=== PATIENT | female | born 1955 | race Caucasian/White ===

== ENCOUNTER 2018-11-06 20:14 | Inpatient (IN) | payer MEDICAID, OTHER ==
[~2018-11-06] VITALS: Ht 157.5 cm; Wt 72.6 kg
[2018-11-06 20:36] VITALS: BP 126/67
--- NOTE | 2018-11-06 20:36 | NUR ---
TO BED # 04 AMBULATORY, REPORT GIVEN TO APARNA CASILLAS.
--- NOTE | 2018-11-06 20:45 | NUR ---
63 YO FEMALES TO ER DUE TO ABNORMAL LABS. PER GRAND SON, HGB LOW. PT STATES SHE FEELS SOB WITH ACTIVITY. PT AAOX4 FOLLOWING COMMANDS. S1 S2, +2 BLE EDEMA NOTED. LUNGS CLEAR EVEN, RR 25-30. ABD SOFT NON DISTENDED. SKIN WARM DRY INTACT. PT DENIES CP/SOB. NO DIZZINESS NOTED. EVAN LOCKED IN LOWEST POSITION. WILL UPDATE ER MD WILL CONTINUE TO OBSERVE.
--- NOTE | 2018-11-06 21:06 | NUR ---
MED HX: ANEMIA, SWELLING OF ANKLES RX: NAPROXEN FOR PAIN
--- NOTE | 2018-11-06 21:24 | NUR ---
X-Ray at bedside.
[2018-11-06 21:52] LABS: BASOPHILS # (AUTO) 0.1 K/uL (0.00-0.22); BASOPHILS % (AUTO) 2.8 % (0.0-2.0); EOSINOPHILS # (AUTO) 0.8 K/uL (0-0.4); EOSINOPHILS % (AUTO) 19.6 % (0.0-4.0); LYMPHOCYTES # (AUTO) 1.8 K/uL (2.5-16.5); LYMPHOCYTES % (AUTO) 40.6 % (20.5-51.1); MEAN CORPUSCULAR HEMOGLOBIN 16 pg (27-31); MEAN CORPUSCULAR HGB CONC 27 g/dL (33-37); MONOCYTES # (AUTO) 0.4 K/uL (0.8-1.0); MONOCYTES % (AUTO) 8.2 % (1.7-9.3); NEUTROPHILS # (AUTO) 1.2 K/uL (1.8-7.7); NEUTROPHILS % (AUTO) 28.8 % (42.2-75.2); PLATELET COUNT (AUTO) 312 K/uL (140-450); RED BLOOD CELL COUNT(AUTO) 3.35 MIL/uL (4.20-5.40); RED CELL DISTRIBUTION WIDTH 22.8 % (11.6-13.7); WHITE BLOOD COUNT (AUTO) 4.3 K/uL (4.8-10.8)
[2018-11-06 22:00] LABS: HEMOGLOBIN 5.3 g/dL (12.0-16.0)
[2018-11-06 22:01] LABS: HEMATOCRIT 19.8 % (36-48)
[2018-11-06 22:05] LABS: CARBON DIOXIDE 29.7 mmol/L (21-32); CREATININE 0.6 mg/dL (0.6-1.3); POTASSIUM 3.7 mmol/L (3.5-5.1)
[2018-11-06 22:11] LABS: ALBUMIN 3.6 g/dL (3.4-5.0); TOTAL BILIRUBIN 0.4 mg/dL (0.0-1.0)
[2018-11-06 22:19] LABS: PROTHROMBIN TIME 9.8 secs (10.8-13.4)
[2018-11-06 22:36] LABS: CREATINE KINASE MB 0.4 ng/mL (0-3.6)
[2018-11-06] MEDS ORDERED: ACETAMINOPHEN 325 MG TAB PO PRN (23:05)
[2018-11-06] MEDS ORDERED: MORPHINE SULFATE 2 MG/ML SYR IVP PRN (23:05)
[2018-11-06] MEDS ORDERED: HYDROcodone/APAP 7.5/325 MG 1 TAB PO PRN (23:05)
[2018-11-06] MEDS ORDERED: DOCUSATE SODIUM 100 MG GELCAP PO PRN (23:05)
[2018-11-06] MEDS ORDERED: ONDANSETRON 4 MG/2 ML VIAL IM/IVP PRN (23:05)
--- NOTE | 2018-11-06 23:15 | NUR ---
Patient will be admitted to care of DR. MAGDALENO. Admited to MST. Will go to [id number]. Belongings list completed. Report to ROBERTO CARLOS. ENDORSED TO FLOOR NURSE THAT LABS DRAWN. NO TRANSFUSION GIVEN, AWAITING PRBC TO BE READY, NEED MORE URINE FOR UDS/CULTURE WELL.
--- NOTE | 2018-11-06 23:40 | NUR ---
Admitted from ED, with chief complaint of ABNORMAL LABS, 63 y/o ,Female, Awake, Alert and Oriented, Cooperative, Slovak-speaking only. Pt was assisted to the bathroom by HAND TIRE TRIMMER. Will collect urine sample for test. Pt appears to be limping and needs standby assist. Pt and Son made aware. Dr Shaver came and did rectal examination to do hemo occult test and he said it's negative. Pt's information given by son. Pt oriented to call light, bed, phone,television, bathroom, smoking policy, visiting hours, procedures, ID bracelet on. Belongings list checked. Asked son to take home pt's belongings. Pt just wants her cellphone with her. MRSA swab collected. Safety reinforced.
[2018-11-06 23:45] VITALS: BP 115/61
[2018-11-07 00:11] LABS: MAGNESIUM 2.2 mg/dL (1.8-2.4); THYROID STIMULATING HORMONE 2.43 uIU/mL (0.34-3.74)
--- NOTE | 2018-11-07 00:20 | NUR ---
Pt went to Radiology for CT of the Head via wheelchair.
[2018-11-07] MEDS: NACL 0.9% 1,000 ML IV SCH ×2 (00:28→23:37)
[2018-11-07 01:10] LABS: APPEARANCE,URINE CLEAR (CLEAR); BILIRUBIN,URINE NEGATIVE (NEGATIVE); BLOOD, URINE NEGATIVE (NEGATIVE); COLOR,URINE YELLOW (YELLOW); LEUKOCYTE ESTERASE ,URINE TRACE (NEGATIVE); NITRITE, URINE NEGATIVE (NEGATIVE); UGLUCOSE NEGATIVE (NEGATIVE)
--- NOTE | 2018-11-07 01:14 | NUR ---
SPOKE TO DR CORTES AND INFORMED HIM ABOUT PT'S VTE SCORE OF 7. TOLD HIM HE ORDERED SEQUENTIAL BUT HE ASKED IF PT IS ON ANY BLOOD THINNER, TOLD HIM, NO. HE SAID "I'LL ORDER HEPARIN SUBQ."
[2018-11-07 02:18] LABS: RBC,URINE 0-5 /HPF (0-5); WBC,URINE 0-5 /HPF (0-5)
[2018-11-07 02:35] LABS: BARBITURATE, URINE NEG. ng/ml (NEG <=200); BENZODIAZEPINE, URINE NEG. ng/mL (NEG <=200); CANNABINOID, URINE NEG. ng/mL (NEG <=50); COCAINE, URINE NEG. ng/mL (NEG <=300); OPIATE, URINE NEG. ng/mL (NEG <=2000); PHENCYCLIDINE SCREEN,URINE NEG. ng/mL (NEG <=25)
--- NOTE | 2018-11-07 03:00 | NUR ---
VITAL SIGNS CHECKED. FIRST UNIT OF PRBC GIVEN ORDERED. WILL MONITOR PT FOR 15MINS. PT DENIES ANY DISCOMFORT.
[2018-11-07 04:00] VITALS: BP 94/42
--- NOTE | 2018-11-07 06:00 | NUR ---
FIRST UNIT OF PRBC FINISHED. VITAL SIGNS CHECKED. PT DENIES ANY ADVERSE REACTION. WILL GIVE 2ND UNIT. PT DENIES ANY NEEDS. CALL LIGHT W/IN REACH.
--- NOTE | 2018-11-07 06:50 | NUR ---
VITAL SIGNS WNL. SECOND UNIT OF PRBC STARTED. WILL MONITOR PT FOR 15MINS.
--- NOTE | 2018-11-07 07:00 | NUR ---
SEQUENTIAL COMPRESSION DEVICE APPLIED FOR VTE PROPHYLAXIS ORDERED. EXPLAINED TO PATIENT BY VINNY ALONSO. PT VERBALIZED UNDERSTANDING.
--- NOTE | 2018-11-07 07:05 | NUR ---
VITAL SIGNS WNL. PT DENIES ANY ADVERSE REACTIONS. WILL CONTINUE TO MONITOR. CALL LIGHT W/IN REACH.
--- NOTE | 2018-11-07 07:09 | NUR ---
WILL ENDORSE CARE TO DAYSHIFT NURSE.
--- NOTE | 2018-11-07 07:10 | NUR ---
RECEIVED REPORT FROM RAD TECHNOLOGIST NURSE AT BEDSIDE FOR CONTINUITY OF CARE. PATIENT AOX4, MONEGASQUE SPEAKING, AMBULATES WITH ASSIST. DX OF ABNORMAL LABS, CURRENTLY GETTING 2ND UNIT OF BLOOD THROUGH IV TO LEFT HAND. IV SITE INTACT, ASYMPTOMATIC AND PATENT. PATIENT DENIES PAIN AT THE MOMENT. VITAL SIGNS WNL. RESPIRATIONS EVEN AND UNLABORED ON 2L O2 VIA NC. PATIENT HAS SCDS. VERBALIZED PLAN OF CARE, PATIENT VERBALIZED UNDERSTANDING. SAFETY PRECAUTIONS IN PLACE, BED ON LOWEST SETTING WITH BRAKES ON, CALL LIGHT WITHIN REACH, WILL CONTINUE TO MONITOR PATIENT.
[2018-11-07 07:55] VITALS: BP 110/54
--- NOTE | 2018-11-07 08:15 | NUR ---
PATIENT HAS BEEN SCREENED AND CATEGORIZED MODERATE NUTRITION RISK. PATIENT WILL BE SEEN WITHIN 3-5 DAYS OF ADMISSION. 11/09/18WU [address]ERGM[address]
--- NOTE | 2018-11-07 10:30 | NUR ---
2ND UNIT OF BLOOD FINISHED. PATIENT DENIES ANY ADVERSE REACTIONS. PT C/O OF HEADACHE, 12/03, OFFERED NORCO, PT REFUSED, OFFERED TYLENOL, PATIENT REFUSED. WILL CONTINUE TO MONITOR PATIENT.
--- NOTE | 2018-11-07 10:55 | NUR ---
THIRD UNIT OF BLOOD STARTED. VS WNL. PATIENT DENIES ANY ADVERSE REACTIONS. SAFETY PRECAUTIONS IN PLACE, CALL LIGHT WITHIN REACH, WILL CONTINUE TO MONITOR PATIENT.
[2018-11-07 12:00] VITALS: BP 110/45
--- NOTE | 2018-11-07 13:15 | NUR ---
PATIENT'S FAMILY AT BEDSIDE. INFORMED PATIENT'S SON, YAEL, OF PLAN OF CARE, HE VERBALIZED UNDERSTANDING. PATIENT STILL RECEIVED BLOOD. SAFETY PRECAUTIONS IN PLACE, CALL LIGHT WITHIN REACH, WILL CONTINUE TO MONITOR PATIENT.
[2018-11-07] MEDS ORDERED: SODIUM FERRIC GLUCONATE 125 MG in NACL 0.9% 100 ML IV SCH (14:00)
--- NOTE | 2018-11-07 14:05 | NUR ---
PT C/O PAIN 410 ON BACK. OFFERED NORCO. PATIENT REFUSED. OFFERED TYLENOL, PATIENT AGREED. MEDICATION GIVEN. PATIENT TOLERATED IT WELL. SAFETY PRECAUTIONS IN PLACE, CALL LIGHT WITHIN REACH, WILL CONTINUE TO MONITOR PATIENT.
--- NOTE | 2018-11-07 14:47 | NUR ---
PHYSICAL THERAPISTS WITH PATIENT. WILL WAIT FOR THEIR RECOMMENDATION.
--- NOTE | 2018-11-07 14:55 | NUR ---
ORDERED IVPB GIVEN. PATIENT TOLERATING IT WELL. PATIENT NOW LAYING IN BED, DENIES PAIN, AFTER AMBULATING TO BATHROOM WITH STANDBY ASSIST. SAFETY PRECAUTIONS IN PLACE, CALL LIGHT WITHIN REACH, WILL CONTINUE TO MONITOR PATIENT.
--- NOTE | 2018-11-07 15:20 | NUR ---
PATIENT RESTING IN BED, DENIES PAIN, RESPIRATIONS EVEN AND UNLABORED ON O2 2L VIA NC. SAFETY PRECAUTIONS IN PLACE, CALL LIGHT WITHIN REACH, WILL CONTINUE TO MONITOR PATIENT.
[2018-11-07 16:00] VITALS: BP 114/44
[2018-11-07 16:26] LABS: BASOPHILS # (AUTO) 0.1 K/uL (0.00-0.22); BASOPHILS % (AUTO) 2.8 % (0.0-2.0); EOSINOPHILS # (AUTO) 0.7 K/uL (0-0.4); HEMATOCRIT 28.7 % (36-48); HEMOGLOBIN 8.6 g/dL (12.0-16.0); LYMPHOCYTES # (AUTO) 1.6 K/uL (2.5-16.5); MEAN CORPUSCULAR HEMOGLOBIN 20 pg (27-31); MEAN CORPUSCULAR HGB CONC 30 g/dL (33-37); MEAN CORPUSCULAR VOLUME 67.7 fL (80-94); MONOCYTES # (AUTO) 0.4 K/uL (0.8-1.0); MONOCYTES % (AUTO) 9.2 % (1.7-9.3); NEUTROPHILS # (AUTO) 1.3 K/uL (1.8-7.7); PLATELET COUNT (AUTO) 254 K/uL (140-450); RED BLOOD CELL COUNT(AUTO) 4.24 MIL/uL (4.20-5.40); RED CELL DISTRIBUTION WIDTH 29.3 % (11.6-13.7); WHITE BLOOD COUNT (AUTO) 4.2 K/uL (4.8-10.8)
--- NOTE | 2018-11-07 17:15 | NUR ---
ORDERED MEDICATION GIVEN. PATIENT TOLERATING IT WELL. PATIENT NOW LAYING IN BED, DENIES PAIN, AFTER AMBULATING TO BATHROOM WITH STANDBY ASSIST. SAFETY PRECAUTIONS IN PLACE, CALL LIGHT WITHIN REACH, WILL CONTINUE TO MONITOR PATIENT.
[2018-11-07] MEDS: FERROUS GLUCONATE 324 MG TAB PO SCH (17:16)
--- NOTE | 2018-11-07 19:10 | NUR ---
RECEIVED REPORT FROM DAY SHIFT RN KERA FOR CONTINUITY OF CARE. PT IS A/OX4, ON ROOM AIR SATURATING AT 95%, PORTUGUESE SPEAKING. PT ABLE TO MAKE NEEDS KNOWN, AND ABLE TO FOLLOW COMMANDS. PT AMBULATES WITH ASSISTANCE. PT SKIN IS INTACT. PT HAS A 20G IV TO RIGHT FOREARM, ASYMPTOMATIC AND INTACT. VITAL SIGNS WITHIN NORMAL LIMITS. PT STABLE, DENIES PAIN, NO SIGNS OF DISTRESS NOTED AT THIS TIME. PT POSITIONED FOR COMFORT. BED IN LOWEST POSITION, BED ALARM ON. WILL CONTINUE TO MONITOR.
[2018-11-07 20:00] VITALS: BP 109/53
--- NOTE | 2018-11-07 21:40 | NUR ---
PT RESTING IN BED NOW. PT STATES SHE DOES NOT NEED ANYTHING AT THE MOMENT. NO SIGNS OF DISTRESS NOTED AT THIS TIME. PT POSITIONED FOR COMFORT. BED IN LOWEST POSITION, BED ALARM ON. WILL CONTINUE TO MONITOR.
[2018-11-08] VITALS: BP 118/48
--- NOTE | 2018-11-08 | NUR ---
VITAL SIGNS WITHIN NORMAL LIMITS. PT STABLE, DENIES PAIN, NO SIGNS OF DISTRESS NOTED AT THIS TIME. PT POSITIONED FOR COMFORT. BED IN LOWEST POSITION, BED ALARM ON. WILL CONTINUE TO MONITOR.
--- NOTE | 2018-11-08 02:25 | NUR ---
ASSISTED PT TO RESTROOM AND BACK TO BED. NO SIGNS OF DISTRESS NOTED AT THIS TIME. PT POSITIONED FOR COMFORT. BED IN LOWEST POSITION, BED ALARM ON. WILL CONTINUE TO MONITOR.
[2018-11-08 04:00] VITALS: BP 103/49
--- NOTE | 2018-11-08 04:00 | NUR ---
ENDORSED PT TO DAY SHIFT RN JACOB AT PT BEDSIDE FOR CONTINUITY OF CARE. PT IN STABLE CONDITION.
--- NOTE | 2018-11-08 04:40 | NUR ---
PT STABLE, NO SIGNS OF DISTRESS NOTED. REPOSITIONED. BED LOW, CALL LIGHT WITHIN REACH. WILL CONTINUE TO MONITOR.
--- NOTE | 2018-11-08 07:26 | NUR ---
ENDORSED PT TO DAY SHIFT RN JACOB AT PT BEDSIDE FOR CONTINUITY OF CARE. PT IN STABLE CONDITION.
[2018-11-08 08:00] VITALS: BP 116/61
[2018-11-08] MEDS: FERROUS GLUCONATE 324 MG TAB PO SCH (08:31)
[2018-11-08] MEDS ORDERED: INFLUENZA VIRUS VACCINE QUAD 0.5 ML SYR IMVAC PRN (09:00)
[2018-11-08] MEDS ORDERED: PNEUMOCOCCAL VACCINE 23 MCG/0.5 ML VIAL IMVAC SCH (09:00)
[2018-11-08 09:38] LABS: MAGNESIUM 2.2 mg/dL (1.8-2.4); PHOSPHORUS 2.3 mg/dL (2.5-4.9)
[2018-11-08 09:40] LABS: ANION GAP 11.6 (8-16); CARBON DIOXIDE 28.7 mmol/L (21-32); CREATININE 0.6 mg/dL (0.6-1.3); POTASSIUM 3.3 mmol/L (3.5-5.1)
[2018-11-08 09:54] LABS: BASOPHILS # (AUTO) 0.1 K/uL (0.00-0.22); BASOPHILS % (AUTO) 2.2 % (0.0-2.0); EOSINOPHILS # (AUTO) 0.6 K/uL (0-0.4); EOSINOPHILS % (AUTO) 16.5 % (0.0-4.0); HEMATOCRIT 31.8 % (36-48); HEMOGLOBIN 9.3 g/dL (12.0-16.0); LYMPHOCYTES % (AUTO) 26.6 % (20.5-51.1); MEAN CORPUSCULAR HEMOGLOBIN 20 pg (27-31); MEAN CORPUSCULAR HGB CONC 29 g/dL (33-37); MEAN CORPUSCULAR VOLUME 68.1 fL (80-94); MONOCYTES # (AUTO) 0.3 K/uL (0.8-1.0); NEUTROPHILS # (AUTO) 1.7 K/uL (1.8-7.7); NEUTROPHILS % (AUTO) 47.7 % (42.2-75.2); PLATELET COUNT (AUTO) 267 K/uL (140-450); RED BLOOD CELL COUNT(AUTO) 4.66 MIL/uL (4.20-5.40); RED CELL DISTRIBUTION WIDTH 29.6 % (11.6-13.7); WHITE BLOOD COUNT (AUTO) 3.6 K/uL (4.8-10.8)
--- NOTE | 2018-11-08 10:55 | NUR ---
SPOKE WITH PT VIA TELEPHONE PUBLIC HEALTH INFORMATICIAN #[id number], PT STATES ANSHUWILL HELPED WITH BACK PAIN, PT REQUESTS PRESCRIPTION FOR PAIN, PT STATES SHE TAKES IBUPROFEN AT HOME BUT NOT EFFECTIVE, WILL NOTIFY MD, PT'S SON WILL COME CRYSTAL SYRUP MAKER PT FOR DISCHARGE, PT STATES IT IS OK FOR SON TO TRANSLATE DURING DISCHARGE INSTRUCTION.
[2018-11-08 12:00] VITALS: BP 108/59
[2018-11-08] MEDS ORDERED: FERR324T11 PO (12:15)
[2018-11-08] MEDS ORDERED: IBUP-2213 PO (12:15)
[2018-11-08] MEDS ORDERED: ASCO500T45 PO (12:15)
[2018-11-08] MEDS ORDERED: DOCU-299 PO (12:15)
[2018-11-08] MEDS ORDERED: POTASSIUM CHLORIDE 10 MEQ TABER PO SCH (12:32)
[2018-11-08] MEDS ORDERED: SODIUM PHOS / POTASSIUM PHOS 1 PKT PDR PO SCH (12:33)
--- NOTE | 2018-11-08 13:15 | NUR ---
VACCINE FLU AND PNA GIVEN PER PT REQUEST, PT ANGELA K KINGSLEY AND K PHODinh WELL.
[2018-11-08] MEDS ORDERED: [UNRECOGNIZED DRUG - CODE] PO (13:23)
--- NOTE | 2018-11-08 13:40 | NUR ---
DISCHARGE INSTRUCTION AND RX INFO GIVEN AND EXPLAINED TO PT AND PT'S SON. THEY EXPRESSED FULL UNDERSTANDING. IV DC'D, CATH TIP INTACT, BLEEDING CONTROLLED, PT ANGELA WELL. PT UP OUT OF BED WITHOUT PROBLEM, WALKS WITH SLOW STEADY GAIT, DC HOME NOW WITH SON.
[2018-11-09 17:43] LABS: FOLIC ACID 10.9 ng/mL (>3.0)
== END 2018-11-08 14:35 | disposition home or self-care (01) | DRG 663 ==
LOC: MED 20:14 → MTU 23:02
PROVIDERS: ADMIT General Practice; ATTEND General Practice
PROC: 30233N1 Transfusion of Nonautologous Red Blood Cells into Peripheral Vein, Percutaneous Approach (ICD-10-PCS; 2018-11-06)
PROC: 3E02340 Introduction of Influenza Vaccine into Muscle, Percutaneous Approach (ICD-10-PCS; principal; 2018-11-08)
PROC: 3E0234Z Introduction of Serum, Toxoid and Vaccine into Muscle, Percutaneous Approach (ICD-10-PCS; 2018-11-08)
DX: D50.9 Iron deficiency anemia, unspecified (principal); I50.42 Chronic combined systolic (congestive) and diastolic (congestive) heart failure; E83.39 Other disorders of phosphorus metabolism; R04.0 Epistaxis; M19.90 Unspecified osteoarthritis, unspecified site; R26.81 Unsteadiness on feet; Z87.891 Personal history of nicotine dependence; E87.6 Hypokalemia; G31.9 Degenerative disease of nervous system, unspecified; I51.7 Cardiomegaly; Z23 Encounter for immunization
CPT/HCPCS: 36415; 70450; 71045; 80048; 80053; 80305; 81001; 82150; 82550; 82553; 82607; 82746; 83036; 83540; 83690; 83735; 83880; 84100; 84443; 84484; 85025; 85045; 85610; 85730; 86886; 86900; 86901; 86920; 87081; 90732; 93005; 93970; 97116; 99285; J2916; J7030; P9016; Q0092

== ENCOUNTER 2020-01-29 19:12 | Emergency (ER) | payer MEDICAID ==
[~2020-01-29] VITALS: Ht 147.3 cm; Wt 75.3 kg
[~2020-01-29 19:12] MED LIST: ASCO500T45 PO; DOCU-299 PO; FERR324T11 PO; [UNRECOGNIZED DRUG - CODE] PO
[2020-01-29 19:22] VITALS: BP 136/77
[2020-01-29 20:30] VITALS: BP 136/77
== END 2020-01-29 20:30 | disposition home or self-care (01) ==
LOC: MED 19:12
DX: F41.9 Anxiety disorder, unspecified (principal); Z79.899 Other long term (current) drug therapy
CPT/HCPCS: 99281; 99283

== ENCOUNTER 2021-09-23 17:16 | Inpatient (IN) | payer MEDICAID, SELFPAY ==
[~2021-09-23] VITALS: Ht 144.8 cm; Wt 70.8 kg
[~2021-09-23 17:16] MED LIST changes: -ASCO500T45 PO; +ASCO500T95 PO; +CEPH250C16 PO
[2021-09-23 17:24] VITALS: BP 114/74
--- NOTE | 2021-09-23 18:14 | NUR ---
PT AMBULATED TO BED 11.
--- NOTE | 2021-09-23 18:35 | NUR ---
Blood work, Influenza/Abbi swabs collected, handed to Jennifer, CPT at ER bedside
[2021-09-23] MEDS ORDERED: FUROSEMIDE 40 MG/4 ML VIAL IVP ONE (18:55)
--- NOTE | 2021-09-23 19:02 | NUR ---
65/F C/O SOB. STATES SHE WAS REFERRED BY HER PCP DUE TO LOW OXYGEN LEVELS, STATES THESE SYMPTOMS HAVE BEEN PRESENT AND WORSENING THE PAST 4-5 MONTHS. DENIES CP, FEVERS. MEDHX: ANEMIA ALLERGIES: NKA
[2021-09-23] MEDS ORDERED: [UNRECOGNIZED DRUG - CODE] PO (19:07)
[2021-09-23 19:16] LABS: BASOPHILS # (AUTO) 0.1 K/uL (0.00-0.22); BASOPHILS % (AUTO) 0.9 % (0.0-2.0); EOSINOPHILS # (AUTO) 0.2 K/uL (0-0.4); EOSINOPHILS % (AUTO) 2.4 % (0.0-4.0); HEMATOCRIT 36.8 % (36-48); HEMOGLOBIN 11.8 g/dL (12.0-16.0); LYMPHOCYTES # (AUTO) 1.3 K/uL (2.5-16.5); LYMPHOCYTES % (AUTO) 17.8 % (20.5-51.1); MEAN CORPUSCULAR HEMOGLOBIN 29 pg (27-31); MEAN CORPUSCULAR HGB CONC 32 g/dL (33-37); MEAN CORPUSCULAR VOLUME 88.8 fL (80-94); MONOCYTES # (AUTO) 0.5 K/uL (0.8-1.0); MONOCYTES % (AUTO) 7.2 % (1.7-9.3); NEUTROPHILS # (AUTO) 5.3 K/uL (1.8-7.7); NEUTROPHILS % (AUTO) 71.7 % (42.2-75.2); PLATELET COUNT (AUTO) 297 K/uL (140-450); RED BLOOD CELL COUNT(AUTO) 4.14 MIL/uL (4.20-5.40); RED CELL DISTRIBUTION WIDTH 16.9 % (11.6-13.7); WHITE BLOOD COUNT (AUTO) 7.3 K/uL (4.8-10.8)
--- NOTE | 2021-09-23 19:36 | NUR ---
Pt report given to CLAIR Beltran RN. Transfer of care at this time.
[2021-09-23 19:57] LABS: ALBUMIN 3.1 g/dL (3.4-5.0); ANION GAP 9.7 (8-16); CARBON DIOXIDE 30.5 mmol/L (21-32); CREATININE 0.4 mg/dL (0.6-1.3); POTASSIUM 4.2 mmol/L (3.5-5.1); TOTAL BILIRUBIN 0.2 mg/dL (0.0-1.0)
[2021-09-24] MEDS ORDERED: ACETAMINOPHEN 325 MG TAB ONE (04:04)
[2021-09-24] MEDS ORDERED: ACETAMINOPHEN 325 MG TAB PO PRN ×2 (04:05→12:05)
--- NOTE | 2021-09-24 05:30 | NUR ---
PATIENT OBSERVED SLEEPING COMFORTABLY IN BED. BREATHING VIA NC AT 2 L/MIN O2 SAT 94% WITH NO SIGNS OF ACUTE DISTRESS. ALL SAFETY MEASURES IN PLACE, WILL CONTINUE TO CLOSELY MONITOR AND FOLLOW POC.
--- NOTE | 2021-09-24 07:19 | NUR ---
PATIENT HAS BEEN SCREENED AND CATEGORIZED MODERATE NUTRITION RISK. PATIENT WILL BE SEEN WITHIN 3-5 DAYS OF ADMISSION. 09/27/21-09/29/21 AMOR ESPINOZA MS, RDN
--- NOTE | 2021-09-24 07:30 | NUR ---
REPORT RECEIVED FROM CLAIR Beltran RN FOR CONTINUITY OF CARE. PT IS A&OX4. ON 2L NASAL CANNULA. IV SITE LT HAND 20G, INTACT, PATENT, GOOD BLOOD RETURN, SALINE LOCKED. SKIN INTACT, WARM AND DRY. CALL LIGHT WITHIN REACH. SAFETY PRECAUTIONS IN PLACE.
[2021-09-24] MEDS: FUROSEMIDE 40 MG/4 ML VIAL IVP SCH (08:11)
[2021-09-24 08:33] LABS: BASOPHILS # (AUTO) 0.1 K/uL (0.00-0.22); BASOPHILS % (AUTO) 1.3 % (0.0-2.0); EOSINOPHILS # (AUTO) 0.4 K/uL (0-0.4); HEMATOCRIT 36.3 % (36-48); HEMOGLOBIN 11.6 g/dL (12.0-16.0); LYMPHOCYTES # (AUTO) 2.3 K/uL (2.5-16.5); LYMPHOCYTES % (AUTO) 36.5 % (20.5-51.1); MEAN CORPUSCULAR HEMOGLOBIN 29 pg (27-31); MEAN CORPUSCULAR HGB CONC 32 g/dL (33-37); MEAN CORPUSCULAR VOLUME 89.1 fL (80-94); MONOCYTES # (AUTO) 0.5 K/uL (0.8-1.0); MONOCYTES % (AUTO) 7.9 % (1.7-9.3); NEUTROPHILS % (AUTO) 47.3 % (42.2-75.2); PLATELET COUNT (AUTO) 274 K/uL (140-450); RED BLOOD CELL COUNT(AUTO) 4.07 MIL/uL (4.20-5.40); RED CELL DISTRIBUTION WIDTH 16.8 % (11.6-13.7); WHITE BLOOD COUNT (AUTO) 6.4 K/uL (4.8-10.8)
--- NOTE | 2021-09-24 08:44 | NUR ---
PT PROVIDED WITH BREAKFAST TRAY
[2021-09-24 08:48] LABS: CARBON DIOXIDE 34.5 mmol/L (21-32); CREATININE 0.4 mg/dL (0.6-1.3); POTASSIUM 3.5 mmol/L (3.5-5.1)
--- NOTE | 2021-09-24 10:48 | NUR ---
PT AMBULATED TO RESTROOM, STEADY GAIT
--- NOTE | 2021-09-24 11:26 | NUR ---
DR QUISPE AT BEDSIDE EXAMINING PT
--- NOTE | 2021-09-24 11:47 | NUR ---
Patient will be admitted to care of DR QUISPE. Admited to TELE HOLD. Will go to room 104A. Belongings list completed. Report to MARGARET CASILLAS.
--- NOTE | 2021-09-24 11:55 | NUR ---
RECEIVED PT FROM ER PATIENT ALERT, AWAKE, ORIENTED, CITIZEN OF [place] SPEAKING WITH A LITTLE BIT OF AUSTRIAN, ON O2 AT 2L/MIN, SKIN WARM TO TOUCH RESP. EVEN AND UNLABORED, SKIN INTACT, PATIENT WITH CANE, CALL LIGHT WITHIN EASY REACH, INFORMED DR CORTES OF THE CONSULT.
[2021-09-24] MEDS ORDERED: MORPHINE SULFATE 2 MG/ML SYR IVP PRN (12:05)
[2021-09-24] MEDS ORDERED: ONDANSETRON 4 MG/2 ML VIAL IM/IVP PRN (12:05)
[2021-09-24] MEDS ORDERED: ZOLPIDEM 5 MG TAB PO PRN (12:05)
[2021-09-24] MEDS ORDERED: LORazepam 2 MG/ML VIAL IM/IVP PRN (12:05)
[2021-09-24] MEDS ORDERED: HYDROcodone/APAP 5/325 MG 1 TAB TAB PO PRN (12:05)
[2021-09-24] MEDS ORDERED: DOCUSATE SODIUM 100 MG GELCAP PO PRN (12:05)
[2021-09-24] MEDS ORDERED: MAG SULF 2000 MG/WATER PREMIX 50 ML IV PRN (12:10)
[2021-09-24] MEDS ORDERED: POTASSIUM CHLORIDE 10 MEQ TABER PO PRN (12:10)
[2021-09-24 12:11] VITALS: BP 106/65
[2021-09-24 12:48] LABS: PROTHROMBIN TIME 9.9 secs (10.8-13.4)
[2021-09-24 12:55] LABS: CHOL/HDL RATIO 2.8 (1-4.5); MAGNESIUM 2.2 mg/dL (1.8-2.4); PHOSPHORUS 4.3 mg/dL (2.5-4.9); THYROID STIMULATING HORMONE 3.39 uIU/mL (0.34-3.74)
[2021-09-24] MEDS: FERROUS GLUCONATE 324 MG TAB PO SCH ×2 (13:11→17:00)
[2021-09-24 14:18] LABS: APPEARANCE,URINE HAZY (CLEAR); BILIRUBIN,URINE NEGATIVE (NEGATIVE); BLOOD, URINE 1+ (NEGATIVE); COLOR,URINE YELLOW (YELLOW); LEUKOCYTE ESTERASE ,URINE TRACE (NEGATIVE); NITRITE, URINE NEGATIVE (NEGATIVE); UGLUCOSE NEGATIVE (NEGATIVE)
[2021-09-24 14:29] LABS: RBC,URINE 0-5 /HPF (0-5)
[2021-09-24 14:30] LABS: CALCIUM OXALATE CRYSTALS,UR None Seen /HPF (None Seen); COARSE GRANULAR CASTS,URINE None Seen /LPF (None Seen); FINE GRANULAR CASTS,URINE None Seen /LPF (None Seen); HYALINE CASTS, URINE None Seen /LPF (None Seen); OTHER CASTS, URINE None Seen /LPF (None Seen); RED BLOOD CELL CASTS,URINE None Seen /LPF (None Seen); TRICHOMONAS,URINE None Seen /HPF (None Seen); TRIPLE PHOSPHATE CRYSTAL,UR None Seen /HPF (None Seen); URIC ACID CRYSTALS,URINE None Seen /HPF (None Seen); URINE AMORPHOUS URATE None Seen /HPF (None Seen); WAXY CASTS,URINE None Seen /LPF (None Seen); YEAST,URINE None Seen /HPF (None Seen)
[2021-09-24 14:31] LABS: BARBITURATE, URINE NEGATIVE ng/ml (NEG <=200); BENZODIAZEPINE, URINE NEGATIVE ng/mL (NEG <=200); CANNABINOID, URINE NEGATIVE ng/mL (NEG <=50); COCAINE, URINE NEGATIVE ng/mL (NEG <=300); OPIATE, URINE NEGATIVE ng/mL (NEG <=2000); PHENCYCLIDINE SCREEN,URINE NEGATIVE ng/mL (NEG <=25)
[2021-09-24 16:00] VITALS: BP 109/66
--- NOTE | 2021-09-24 17:22 | NUR ---
DC PLANNING PATIENT IS A 65-YEAR-OLD FEMALE ADMITTED IN THE [facility]/ED ON 09/23/2021. DUE TO SEVERE WEAKNESS, FATIGUE AND SHORTHNES OF BREATH. PATIENT WAS DIAGNOSE RECENTLY WITH CONGESTIVE HEART FAILURE. MESFIN MET WITH PATIENT AT BEDSIDE TO DISCUSS AND GATHER PATIENT'S COLLATERAL INFORMATION. PATIENT CALL HER SON YAEL OVER THE PHONE TO MAKE SURE HE WAS INVOLVED IN CONVERSATION WITH THESE SENIOR STRATEGY MANAGER. PER PATIENT SHE IS LIVING AT HOME WITH HER SON (DEAN) IN A ONE FLOOR APARTMENT IN [facility]. PER PATIENT HER SON IS HER EMERGENCY CONTACT AND HIS MEDICAL DECISION MAKER. PATIENT STATED THAT SHE DO NOT HAVE ADVANCE DIRECTIVES AND WAS INTERESTED ON GETTING A.D. INFORMATION PACKET PROVIDED BY MESFIN. PATIENT REPORTED THAT SHE HAS A PRIMARY PCP IN [facility] IN [facility] . PATIENT STATED THAT HER LAST VISI WAS ON 09/23/21. SW DISCUSSED WITH PATIENT ABOUT THE IMPORTANCE OF MAKING A FOLLOW UP APPOINTMENT WITH HER PCP AFTER HER DISCHARGE FROM [facility]. PATIENT AGREED AND STATED THAT SHE WILL MAKE HER APPOINTMENT WHEN SHE IS DC FROM [facility]. PATIENT ALSO REPORTED HAVING NO ISSUES GETTING OR TAKING HER MEDICATION PRESCRIBED AND REPORTED THAT HER SON YAEL TIG WELDER HER MEDICATION FROM THE [facility] IN [facility]. PER PATIENT SHE ONLY HAS A CANE HER DME. PER PATIENT AND SON PATIENT WILL RETURN BACK HOME WITH HER SON AFTER HER DC FROM [facility]. PATIENT'S SON WILL BE PICKING UP PATIENT AT DISCHARGE. MESFIN THANKED SON YAEL FOR THE INFORMATION PROVIDED AND WILL FOLLOW UP WITH PATIENT NEEDED.
--- NOTE | 2021-09-24 18:08 | NUR ---
SCHEDULED MEDICATIONS DUE GIVEN. WILL CONTINUE TO MONITOR.
--- NOTE | 2021-09-24 19:14 | NUR ---
GAVE REPORT TO BURGLAR ALARM ASSEMBLER NURSE FOR CONTINUITY OF CARE. PATIENT IN STABLE CONDITION.
[2021-09-24 20:00] VITALS: BP 97/53
--- NOTE | 2021-09-24 20:00 | NUR ---
RECEIVED REPORT OF PT IN STABLE CONDITION.RESP.UNLABORED W/O2 AT 2L/NC.LUNGS DIMINISHED.TELE SHOWING ST.SL PATENT.CALL LIGHT IN REACH.WILL CONT.MONITORING.
[2021-09-24] MEDS: ASCORBIC ACID 500 MG TAB PO SCH (20:39)
[2021-09-24] MEDS: ENOXAPARIN 80 MG/0.8 ML SYR SUBQ SCH (20:41)
[2021-09-25] VITALS: BP 109/63
--- NOTE | 2021-09-25 | NUR ---
SLEEPING.VS STABLE.HR IS SR W/ST DEPRESSION.NO DISTRESS NOTED.CALL LIGHT WITHIN REACH.
[2021-09-25 04:00] VITALS: BP 117/66
[2021-09-25 07:30] LABS: ANION GAP 6.1 (8-16); CARBON DIOXIDE 39.8 mmol/L (21-32); CREATININE 0.5 mg/dL (0.6-1.3); POTASSIUM 3.9 mmol/L (3.5-5.1)
[2021-09-25 07:31] LABS: BASOPHILS # (AUTO) 0.1 K/uL (0.00-0.22); EOSINOPHILS # (AUTO) 0.3 K/uL (0-0.4); EOSINOPHILS % (AUTO) 5.7 % (0.0-4.0); HEMATOCRIT 38.5 % (36-48); HEMOGLOBIN 12.3 g/dL (12.0-16.0); LYMPHOCYTES # (AUTO) 2.1 K/uL (2.5-16.5); LYMPHOCYTES % (AUTO) 39.4 % (20.5-51.1); MEAN CORPUSCULAR HEMOGLOBIN 29 pg (27-31); MEAN CORPUSCULAR HGB CONC 32 g/dL (33-37); MONOCYTES # (AUTO) 0.5 K/uL (0.8-1.0); MONOCYTES % (AUTO) 8.5 % (1.7-9.3); NEUTROPHILS # (AUTO) 2.5 K/uL (1.8-7.7); NEUTROPHILS % (AUTO) 45.4 % (42.2-75.2); PLATELET COUNT (AUTO) 270 K/uL (140-450); RED BLOOD CELL COUNT(AUTO) 4.28 MIL/uL (4.20-5.40); RED CELL DISTRIBUTION WIDTH 16.4 % (11.6-13.7); WHITE BLOOD COUNT (AUTO) 5.4 K/uL (4.8-10.8)
--- NOTE | 2021-09-25 07:39 | NUR ---
REPORT GIVEN TO AM RN IN STABLE CONDITION.HR IS SR/SA.
--- NOTE | 2021-09-25 07:40 | NUR ---
OPENING NOTES: PATIENT IS RESTING IN BED. AAOX4. ABLE TO AMBULATE TO THE BATHROOM INDEPENDENTLY WITH STEADY GAIT. EXPLAINED POC AND PATIENT VERBALIZED UNDERSTANDING. PATIENT IS ABLE TO SPEAK AND UNDERSTAND TUNISIAN A LITTLE BIT BUT ABLE TO MAKE NEEDS KNOWN. NO ADDITIONAL DISTRESS NOTED. BED IN LOW AND LOCK POSITION. CALL LIGHT WITHIN REACH. WILL CONT TO MONITOR. .
[2021-09-25 07:49] LABS: MAGNESIUM 2.2 mg/dL (1.8-2.4); PHOSPHORUS 4.4 mg/dL (2.5-4.9)
[2021-09-25 08:00] VITALS: BP 101/56
[2021-09-25] MEDS: ASCORBIC ACID 500 MG TAB PO SCH ×2 (08:26→20:52)
[2021-09-25] MEDS: FUROSEMIDE 40 MG/4 ML VIAL IVP SCH (08:26)
[2021-09-25] MEDS: FERROUS GLUCONATE 324 MG TAB PO SCH ×3 (08:26→17:00)
[2021-09-25] MEDS: NIACIN 500 MG TAB PO SCH (08:27)
[2021-09-25] MEDS: ENOXAPARIN 80 MG/0.8 ML SYR SUBQ SCH ×2 (08:33→20:54)
[2021-09-25] MEDS ORDERED: NIACIN PO SCH (09:00)
[2021-09-25 12:00] VITALS: BP 94/63
[2021-09-25 16:00] VITALS: BP 113/59
--- NOTE | 2021-09-25 18:50 | NUR ---
CLOSING NOTES: PATIENT IS SITTING AT THE SIDE OF THE BED EATING HER DINNER. BED IN LOW AND LOCK POSITION. CALL LIGHT WITHIN REACH. HOURLY ROUNDING PERFORMED THROUGHOUT THE SHIFT. PATIENT HAS BEEN SLEEPING ALL DAY. ECHO AND CXRAY WAS DONE TODAY. POSSIBLE DC IN A. NO ADDITIONAL DISTRESS NOTED. STABLE CONDITION THROUGHOUT THE SHIFT. WILL CONT TO MONITOR.
--- NOTE | 2021-09-25 20:50 | NUR ---
PATIENT IS AWAKE, ALERT, VERBALLY RESPONSIVE IN FIJIAN. NO SOB NOTED. O2 AT 2L NC TOLERATING WELL. SAFETY MEASURES IN PLACE. CALL LIGHT WITHIN REACH. NEEDS ATTENDED TO. NO COMPLAINTS OF PAIN. WILL CONTINUE TO MONITOR.
--- NOTE | 2021-09-25 20:52 | NUR ---
SCHEDULED 2100 MEDICATIONS GIVEN.
[2021-09-25] MEDS ORDERED: methylPREDNISolone SS 40 MG/ML VIAL IVP ONE (23:10)
[2021-09-26] VITALS: BP 96/59
[2021-09-26] MEDS ORDERED: methylPREDNISolone SS 40 MG/ML VIAL ONE (01:34)
[2021-09-26] MEDS: levoFLOXacin 500 MG TAB PO SCH ×2 (01:37→09:00)
--- NOTE | 2021-09-26 03:10 | NUR ---
PATIENT IS SLEEPING. NO SOB NOTED.
[2021-09-26 07:31] LABS: BASOPHILS % (AUTO) 0.9 % (0.0-2.0); EOSINOPHILS # (AUTO) 0.1 K/uL (0-0.4); EOSINOPHILS % (AUTO) 1.9 % (0.0-4.0); HEMATOCRIT 37.7 % (36-48); LYMPHOCYTES # (AUTO) 0.5 K/uL (2.5-16.5); LYMPHOCYTES % (AUTO) 11.4 % (20.5-51.1); MEAN CORPUSCULAR HEMOGLOBIN 29 pg (27-31); MEAN CORPUSCULAR HGB CONC 32 g/dL (33-37); MEAN CORPUSCULAR VOLUME 89.7 fL (80-94); MONOCYTES # (AUTO) 0.1 K/uL (0.8-1.0); MONOCYTES % (AUTO) 1.7 % (1.7-9.3); NEUTROPHILS # (AUTO) 3.8 K/uL (1.8-7.7); NEUTROPHILS % (AUTO) 84.1 % (42.2-75.2); PLATELET COUNT (AUTO) 270 K/uL (140-450); RED CELL DISTRIBUTION WIDTH 16.4 % (11.6-13.7); WHITE BLOOD COUNT (AUTO) 4.6 K/uL (4.8-10.8)
--- NOTE | 2021-09-26 07:45 | NUR ---
ENDORSED TO AM NURSE FOR CONTINUITY OF CARE. PATIENT IS STABLE.
[2021-09-26 07:46] LABS: MAGNESIUM 2.1 mg/dL (1.8-2.4); PHOSPHORUS 3.3 mg/dL (2.5-4.9)
--- NOTE | 2021-09-26 07:46 | NUR ---
RECEIVED BEDSIDE REPORT FROM OIL WELL SHOOTER NURSE FOR CONTINUITY OF CARE. PT BREATHING IS EVEN AND UNLABORED. ON O2 NC AT 2L. NO S/S OF DISTRESS NOTED. L HAND 20G SL. PT IS STABLE.
[2021-09-26 07:58] LABS: CREATININE 0.5 mg/dL (0.6-1.3); POTASSIUM 3.8 mmol/L (3.5-5.1)
[2021-09-26 08:00] VITALS: BP 99/64
[2021-09-26 08:26] LABS: ANION GAP 10.3 (8-16); CARBON DIOXIDE 35.5 mmol/L (21-32)
[2021-09-26] MEDS: ASCORBIC ACID 500 MG TAB PO SCH ×2 (09:00→20:44)
[2021-09-26] MEDS: NIACIN 500 MG TAB PO SCH (09:00)
[2021-09-26] MEDS: FERROUS GLUCONATE 324 MG TAB PO SCH ×3 (09:00→17:00)
[2021-09-26] MEDS: ENOXAPARIN 80 MG/0.8 ML SYR SUBQ SCH ×2 (09:00→20:53)
[2021-09-26] MEDS: methylPREDNISolone SS 40 MG/ML VIAL IVP SCH (09:00)
[2021-09-26] MEDS ORDERED: POTA8TAB19 PO (09:03)
[2021-09-26] MEDS ORDERED: FURO-570 PO (09:03)
[2021-09-26] MEDS ORDERED: LEVO-315 PO (09:03)
[2021-09-26] MEDS ORDERED: PANT40EC PO (09:03)
[2021-09-26] MEDS ORDERED: PRED10TA5 PO (09:03)
--- NOTE | 2021-09-26 11:42 | NUR ---
PT BREATHING IS EVEN AND UNLABORED. ON O2 NC AT 2L. NO S/S OF DISTRESS NOTED. L HAND 20G SL. PT IS STABLE.
--- NOTE | 2021-09-26 15:01 | NUR ---
PT RESTING. PT BREATHING IS EVEN AND UNLABORED. ON O2 NC AT 2L. NO S/S OF DISTRESS NOTED. L HAND 20G SL. PT IS STABLE.
[2021-09-26 16:00] VITALS: BP 121/74
--- NOTE | 2021-09-26 16:26 | NUR ---
DC PLANNING: CHAPO SPOKE WITH THE PATIENTS SON DEAN BY PHONE TO ENDORSE THAT HOME O2 IS BEING ORDERED, WAITING FOR [facility] FORM TO BE SIGNED BY ATTENDING MD AND FAXED BACK TO . THE PATIENT LIVES WITH HER SON IN A GROUND FLOOR APARTMENT AND IS NORMALLY INDEPENDENT IN ALL ACTIVITIES INCLUDING SELF CARE AND AMBULATION. FWW IS ALSO BEING ORDERED SON INDICATES THAT THE PATIENT IS UNSTEADY AND HAS NO DME. SHE HAS NO H/O HOME HEALTH, CM WILL FAX FINAL PACKET TO [facility], PHONE [phone], FAX [phone]. CM WILL FOLLOW. Addendum: 09/26/21 at 1648 by Fay Zayas CM DC PLANNING: COMPLETED FORM, ORDER AND CLINICAL PACKET FAXED TO [facility] [facility] FOR DELIVERY OF O2 TODAY, UNABLE TO CONFIRM DELIVERY AT THIS TIME. CHAPO WILL FOLLOW. Addendum: 09/26/21 at 1708 by Fay Zayas CM DC PLANNING: CHAPO SPOKE WITH [facility]ICHTER RESP., PATIENT HAS EMERGENCY M/LAURO AND O2 IS NOT COVERED. CHAPO SPOKE WITH THE PATIENTS DONTA WOODS WHO IS WILLING TO PAY THE OUT OF POCKET OF $525 FOR 3 MONTHS PROVISION OF A CONCENTRATOR AND ONE TANK OF O2, ADDITIONAL TANKS ARE $12/EACH. CHAPO THEN CALLED [facility] AND LEFT A MESSAGE FOR THEIR AFTER HOURS PERSON ASKING FOR F/U. [facility] WILL FOLLOW. Addendum: 09/27/21 at 1251 by Marcie Velázquez CM Pt not qualifying for home O2. Called & spoke with Joie at [facility], ph [phone], states does not qualify for Medicare or insurance but since [employer] pay, pt can get home O2 if wants it. Spoke with pt & she placed donta Woods on speaker , they discussed & decided did not want, pt stating feeling well. Pt was ambulating on room air from BR to bed when I entered room & cont on room air with no SOB noted. Son wanted to see if can call [employer] if requires home O2 when home. Called & spoke with Joie, & states son can call [facility], ph [phone], if changes mind when get home & wants to get home O2. Called & informed son. Addendum: 09/28/21 at 1633 by Dyana Pettit SS DC PLANNING: MESFIN CALLED PATIENT'S PCP OFFICE AT [facility] TO SCHEDULED A FOLLOW UP APPOINTMENT FOR PATIENT AFTER HIS DC FROM [facility] YESTERDAY. MESFIN SPOKE TO ADRIANA WHO PROVIDED A FOLLOW UP APPOINTMENT FOR PATIENT ON 10/03/2021 AT 14:00PM WITH MD. ZINA WOODSON AT [address] [place] [id number]. MESFIN SCHEDULED APPT AND ENDED THE CALL. MESFIN CALLED PATIENT AT TO INFORM HER OF SCHEDULED APPOINTMENT BY THERE ALIGNMENT SPECIALIST WITH PCP WITHIN 7 DAYS OF HER DISCHARGE FROM [facility]. MESFIN PROVIDED PATIENT WITH ALL INFORMATION TIME, DATE AND ADDRESS FOR HER FOLLOW UP APPOINTMENT. PATIENT AGREED TO GO TO HER SCHEDULED APPOINTMENT AND THANKED THESE ALIGNMENT SPECIALIST FOR THE CALL.
--- NOTE | 2021-09-26 19:20 | NUR ---
ENDORSED TO BULK SAUSAGE CASING TIER OFF NURSE FOR CONTINUITY OF CARE. POC DISCUSSED.
--- NOTE | 2021-09-26 19:21 | NUR ---
RECD. RESTING IN BED, AWAKE, A/OX4. RESPIRATION EVEN AND UNLABORED. IV SALINE LOCK AT THE LEFT HAND HAND G20, PATENT AND INTACT. ON 02 AT 2 LITERS VIA N/C. INDEPENDENT, ABLE TO AMBULATE BY HERSELF. DENIES PAIN 0/10.
--- NOTE | 2021-09-26 20:44 | NUR ---
CONVERSING WITH SOMEBODY USING HER CELLPHONE. SCHEDULED MEDICATIONS ADMINISTERED.
[2021-09-27] VITALS: BP 112/72
--- NOTE | 2021-09-27 | NUR ---
STILL AWAKE IN BED, WATCHING TV. RESPIRATION EVEN AND UNLABORED.
--- NOTE | 2021-09-27 02:00 | NUR ---
SLEEPING COMFORTABLY IN BED, RESPIRATION EVEN AND UNLABORED. CALL LIGHT IN REACH.
--- NOTE | 2021-09-27 04:00 | NUR ---
OH HER RIDE SIDE, COMFORTABLY ASLEEP.
--- NOTE | 2021-09-27 05:28 | NUR ---
Patient's Plan of Care was discussed and reviewed with [employer]: STUART /JAMES CASILLAS
--- NOTE | 2021-09-27 06:50 | NUR ---
CONDITION REMAIN STABLE. WILL ENDORSE TO AM SHIFT NURSE FOR CONTINUITY OF CARE.
--- NOTE | 2021-09-27 07:15 | NUR ---
RECEIVED BEDSIDE REPORT FROM MEDICAL APPOINTMENT CLERK NURSE FOR CONTINUITY OF CARE. PT BREATHING IS EVEN AND UNLABORED. ON O2 NC AT 2L. NO S/S OF DISTRESS NOTED. L HAND 20G SL. PT IS STABLE.
[2021-09-27 08:00] VITALS: BP 118/69
[2021-09-27 08:15] LABS: MAGNESIUM 2.2 mg/dL (1.8-2.4); PHOSPHORUS 2.6 mg/dL (2.5-4.9)
[2021-09-27 08:16] LABS: BASOPHILS % (AUTO) 0.5 % (0.0-2.0); EOSINOPHILS # (AUTO) 0.1 K/uL (0-0.4); EOSINOPHILS % (AUTO) 0.8 % (0.0-4.0); HEMATOCRIT 36.4 % (36-48); HEMOGLOBIN 11.9 g/dL (12.0-16.0); LYMPHOCYTES # (AUTO) 1.7 K/uL (2.5-16.5); LYMPHOCYTES % (AUTO) 18.3 % (20.5-51.1); MEAN CORPUSCULAR HEMOGLOBIN 29 pg (27-31); MEAN CORPUSCULAR HGB CONC 33 g/dL (33-37); MEAN CORPUSCULAR VOLUME 89.1 fL (80-94); MONOCYTES # (AUTO) 0.6 K/uL (0.8-1.0); MONOCYTES % (AUTO) 6.8 % (1.7-9.3); NEUTROPHILS % (AUTO) 73.6 % (42.2-75.2); PLATELET COUNT (AUTO) 303 K/uL (140-450); RED BLOOD CELL COUNT(AUTO) 4.09 MIL/uL (4.20-5.40); WHITE BLOOD COUNT (AUTO) 9.5 K/uL (4.8-10.8)
[2021-09-27 08:29] LABS: ANION GAP 9.4 (8-16); CARBON DIOXIDE 35.3 mmol/L (21-32); CREATININE 0.4 mg/dL (0.6-1.3); POTASSIUM 3.7 mmol/L (3.5-5.1)
[2021-09-27] MEDS ORDERED: FUROSEMIDE 40 MG TAB PO SCH (09:00)
[2021-09-27] MEDS: ENOXAPARIN 80 MG/0.8 ML SYR SUBQ SCH (09:18)
[2021-09-27] MEDS: FERROUS GLUCONATE 324 MG TAB PO SCH ×2 (09:19→12:40)
[2021-09-27] MEDS: NIACIN 500 MG TAB PO SCH (09:19)
[2021-09-27] MEDS: ASCORBIC ACID 500 MG TAB PO SCH (09:19)
[2021-09-27] MEDS: methylPREDNISolone SS 40 MG/ML VIAL IVP SCH (09:19)
[2021-09-27] MEDS: levoFLOXacin 500 MG TAB PO SCH (09:19)
--- NOTE | 2021-09-27 11:30 | NUR ---
PT CHECKED ON ROOM AIR WITH NO OXYGEN. WHEN IN BED OR SITTING OR RESTING PATIENT IS AROUND 94-95% O2 SAT. WHEN PT IS STANDING, WALKING, OR ANY PHYSICAL ACTIVITY, O2 DROPS TO AROUND 89-90% O2 SAT. WHEN SHE SITS BACK DOWN , IT SLOWLY GOES BACK UP TO 95%. PT TEACHING ON ENERGY CONSERVING MEASURES AT HOME AND ADVISED ABOUT GETTING SHOWER CHAIR FOR SAFETY. PT ONLY COMPLAINS ABOUT INTERMITTENT PAIN IN THE POSTERIOR BAKC AROUND BOTTOM OF LUNGS WHEN STANDING UP. PT EDUCATION GIVEN ON PAIN MANAGEMENT AND ENERGY CONSERVING MEASURES. PT IS STABLE.
[2021-09-27 18:15] VITALS: BP 118/69
--- NOTE | 2021-09-27 19:00 | NUR ---
PT DC TO SON AND TO GO HOME. PT OK WITHOUT O2. PT STABLE. PT AND FAM GRATEFUL.
== END 2021-09-27 19:30 | disposition home or self-care (01) | DRG 194 ==
LOC: MED 17:16 → MTU 20:53
DX: I50.43 Acute on chronic combined systolic (congestive) and diastolic (congestive) heart failure (principal); J96.01 Acute respiratory failure with hypoxia; E44.0 Moderate protein-calorie malnutrition; E87.1 Hypo-osmolality and hyponatremia; J18.9 Pneumonia, unspecified organism; M19.90 Unspecified osteoarthritis, unspecified site; Z20.822 Contact with and (suspected) exposure to COVID-19; E78.5 Hyperlipidemia, unspecified; E66.9 Obesity, unspecified; D50.9 Iron deficiency anemia, unspecified; Z87.891 Personal history of nicotine dependence; Z68.33 Body mass index [BMI] 33.0-33.9, adult
CPT/HCPCS: 36415; 71045; 80048; 80053; 80305; 81001; 82150; 83036; 83690; 83735; 83880; 84100; 84134; 84443; 84484; 85025; 85610; 85730; 87081; 87086; 93005; 96374; 99285; J1650; J1940; J2920; Q0092

== ENCOUNTER 2021-12-10 03:18 | Inpatient (IN) | payer MEDICAID ==
[~2021-12-10] VITALS: Ht 141 cm; Wt 70.3 kg
[~2021-12-10 03:18] MED LIST changes: -CEPH250C16 PO; +FURO-570 PO; +PANT40EC PO; +POTA8TAB19 PO; +PRED10TA5 PO; +[UNRECOGNIZED DRUG - CODE] PO
[2021-12-10 03:21] VITALS: BP 166/101
--- NOTE | 2021-12-10 03:25 | NUR ---
PT TAKEN TO BED 8
--- NOTE | 2021-12-10 03:30 | NUR ---
PT AMBULATED WITH ASSITANCE OF A CANE ACCOMPANIED BY HER SON TO BED 8. PT PLACED ON TELE MONITOR AT THIS TIME. PT HX ACCORDING TO THE SON IS POSSIBLE EMPHASEMA, ANEMIA AND COMPRESSION FX DUE TO SCOLIOSIS. PT NOTED WITH LABORED BREATHING AND USE OF ACCESSORY MUSCLES. MD ALSO AT BEDSIDE EXAMING PT.
[2021-12-10] MEDS ORDERED: LORazepam 1 MG TAB PO ONE (03:50)
--- NOTE | 2021-12-10 03:50 | NUR ---
RAD AT BEDSIDE
[2021-12-10 03:52] LABS: BASOPHILS # (AUTO) 0.1 K/uL (0.00-0.22); BASOPHILS % (AUTO) 1.7 % (0.0-2.0); EOSINOPHILS # (AUTO) 0.2 K/uL (0-0.4); EOSINOPHILS % (AUTO) 2.2 % (0.0-4.0); HEMATOCRIT 36.4 % (36-48); HEMOGLOBIN 11.6 g/dL (12.0-16.0); LYMPHOCYTES # (AUTO) 1.1 K/uL (2.5-16.5); LYMPHOCYTES % (AUTO) 13.4 % (20.5-51.1); MEAN CORPUSCULAR HEMOGLOBIN 29 pg (27-31); MEAN CORPUSCULAR HGB CONC 32 g/dL (33-37); MEAN CORPUSCULAR VOLUME 90.7 fL (80-94); MONOCYTES # (AUTO) 0.4 K/uL (0.8-1.0); MONOCYTES % (AUTO) 5.6 % (1.7-9.3); NEUTROPHILS # (AUTO) 6.1 K/uL (1.8-7.7); NEUTROPHILS % (AUTO) 77.1 % (42.2-75.2); PLATELET COUNT (AUTO) 282 K/uL (140-450); RED BLOOD CELL COUNT(AUTO) 4.02 MIL/uL (4.20-5.40); RED CELL DISTRIBUTION WIDTH 14.5 % (11.6-13.7); WHITE BLOOD COUNT (AUTO) 7.9 K/uL (4.8-10.8)
--- NOTE | 2021-12-10 04:00 | NUR ---
PT GIVEN 1MG PO ATIVAN FOR ANXIETY.
[2021-12-10 04:15] LABS: ALBUMIN 3.1 g/dL (3.4-5.0); ANION GAP 7.1 (8-16); CARBON DIOXIDE 30.7 mmol/L (21-32); CREATININE 0.4 mg/dL (0.6-1.3); POTASSIUM 3.8 mmol/L (3.5-5.1); TOTAL BILIRUBIN 0.4 mg/dL (0.0-1.0)
--- NOTE | 2021-12-10 04:47 | NUR ---
02 DROPPD TO 87 THEN BACK UP TO 88 AND TOUCHING 90 ORDERED 02 PLACED AT 2 LITERS WAS ADDED FOR COMFORT MEASURES.
[2021-12-10] MEDS ORDERED: HYDROcodone/APAP 7.5/325 MG 1 TAB PO ONE (04:55)
--- NOTE | 2021-12-10 05:14 | NUR ---
PT TAKEN TO CT
--- NOTE | 2021-12-10 05:16 | NUR ---
20 GUAGE ON THE RIGHT AC PLACED FOR ORDERED CT ANGIO OF THE CHEST. CONSENT SIGNED AT BEDSIDE BY DONTA MORAN. PT WENT DOWN TO RADIOLOGY FOR CT ANGIO OF THE CHEST AT THIS TIME.
--- NOTE | 2021-12-10 05:39 | NUR ---
PT RETURNED FROM RADIOLOGY, SHE WAS GIVEN ORDERED NORCO FOR BACK PAIN. [facility] MORAN [facility] POINT OF CONTACT CELL NUMBER FOLLOWS: [phone].
--- NOTE | 2021-12-10 06:30 | NUR ---
PAIN RELIEF NOTED FORM NORCO . PT LAST V/S FOLLLOWS P 102 RR 25 B/P 140/84 02 95% WITH 2 LITERS VIA N/C. NEW ER MD WHITEHEAD EXAINING PT AT BEDSIDE. HE SAID HE WILL ORDER A NEB TREATMENT. PT SITTING UP ABOUT 45% WITH USE OF ACCESORY MUSCLES AND REMAINS ON 2 LITERS 02. SHE HAS NO C/O OF PAIN AT THIS TIME. PT PLACED IN GOWN FOR ANTICIPATION OF ADMISSION. NO ADMISSION ORDER NOTED YET. ALL UNIVERSAL FALLS PRECAUTIONS IN PLACE.
[2021-12-10] MEDS ORDERED: ALBUTEROL 0.083% 2.5 MG/3 ML NEBU INH ONE ×2 (06:35→07:20)
--- NOTE | 2021-12-10 07:00 | NUR ---
LAB DRAWS AT BEDSIDE.
--- NOTE | 2021-12-10 07:19 | NUR ---
REPORT GIVEN TO HOMER CASILLAS DAYSHIFT NURSE AT BEDSIDE FOR CONTINUITY OF CARE. PT RECEIVEDING NEB TREATMENT AT BEDSIDE.
[2021-12-10] MEDS ORDERED: IPRATROPIUM 0.02% 0.5 MG/2.5 ML NEBU INH ONE (07:20)
--- NOTE | 2021-12-10 07:30 | NUR ---
Pt is AOX4, able to make needs known resp even and labored with RT at bedside for breathing Tx, Dr Jones aware of respiratpry status and V/S at this time. Pt denies pain/N/V/D/CP at this time. Abd soft and distended, non tender to touch. +BS heard x 4, passing flatus. Last BM 12/09/21, denies any blood in stool, brown and solid. Set up purewick per patient preference. All needs met and update given to pt and family of status. Call light in reach
[2021-12-10] MEDS ORDERED: methylPREDNISolone SS 125 MG/2 ML VIAL IVP ONE (07:45)
[2021-12-10] MEDS ORDERED: AZITHROMYCIN 500 MG in DEXTROSE 5% 250 ML IV ONE (08:20)
--- NOTE | 2021-12-10 08:35 | NUR ---
Per Dr Jones, blood cultures are not necessary before starting ATB therapy
--- NOTE | 2021-12-10 08:47 | NUR ---
pt returned to bed [address] [facility]
[2021-12-10] MEDS ORDERED: MORPHINE SULFATE 2 MG/ML SYR IVP PRN (09:00)
[2021-12-10] MEDS ORDERED: POTASSIUM CHLORIDE 10 MEQ TABER PO PRN (09:00)
[2021-12-10] MEDS ORDERED: ZOLPIDEM 10 MG TAB PO PRN (09:00)
[2021-12-10] MEDS ORDERED: ONDANSETRON 4 MG/2 ML VIAL IVP PRN (09:00)
[2021-12-10] MEDS ORDERED: FUROSEMIDE 40 MG TAB PO SCH (09:00)
[2021-12-10] MEDS ORDERED: MAG SULF 2000 MG/WATER PREMIX 50 ML IV PRN (09:00)
[2021-12-10] MEDS ORDERED: DOCUSATE SODIUM 100 MG GELCAP PO PRN (09:00)
[2021-12-10] MEDS ORDERED: ACETAMINOPHEN 325 MG TAB PO PRN (09:00)
[2021-12-10] MEDS ORDERED: predniSONE 10 MG TAB PO SCH (09:00)
[2021-12-10] MEDS ORDERED: LORazepam 2 MG/ML VIAL IVP PRN (09:00)
[2021-12-10] MEDS ORDERED: cefTRIAXone 1,000 MG VIAL ONE (09:03)
--- NOTE | 2021-12-10 09:11 | NUR ---
ELSIE BLANKENSHIP COLLECTED AND WALKED TO LAB
--- NOTE | 2021-12-10 10:00 | NUR ---
Patient will be admitted to care of . Admited to Tele. Pt transported to room 125 A. Belongings list completed. Report to Luke.
--- NOTE | 2021-12-10 10:00 | NUR ---
Pt report given to VINNY Butler. Transfer of care at this time.
[2021-12-10 10:20] VITALS: BP 122/76
--- NOTE | 2021-12-10 10:30 | NUR ---
RECEIVED PATIENT, AOX4, ANDORRAN SPEAK, SINUS RHYTHM ON HVAC OPERATIONS TECHNICIAN, ON 2L NASAL CANNULA SPO2 97%. AMBULATED TO BATHROOM WITH ASSIST WITH INCREASED SHORTNESS OF BREATH NOTED. UPDATED PATIENT AND SON JUSTIN OF PLAN OF CARE. SKIN INTACT. IV INTACT WITH ANTIBIOTICS INFUSING. WILL CONTINUE TO MONITOR.
[2021-12-10] MEDS: PANTOPRAZOLE 40 MG TABEC PO SCH (11:22)
[2021-12-10] MEDS: FUROSEMIDE 20 MG TAB PO SCH (11:22)
--- NOTE | 2021-12-10 13:30 | NUR ---
PATIENT SITTING UP AND EATING LUNCH. DONTA MORAN AT BEDSIDE. CASH ROOM CLERK AT BEDSIDE, UPDATED ON PLAN OF CARE. ON 2L NASAL CANNULA. IV ANTIBIOTICS INFUSING.
[2021-12-10] MEDS: ALBUTEROL SULFATE/IPRATROPIU 3 ML SOL IH SCH (14:10)
--- NOTE | 2021-12-10 14:51 | NUR ---
PATIENT RESTING COMFORTABLY WITH BIPAP ON, TOLERATING WELL SPO2 98%. USED BEDPAN VOIDING FREELY. DENIES PAIN. WILL CONT TO MONITOR.
--- NOTE | 2021-12-10 15:15 | NUR ---
BI-PAP REMOVED PER PT REQUEST, PT BREATH SOUNDS ARE IMPROVED DIMINISHED AT THE BASES AND CLEAR AT THE APICES, THE PT SHOWED MARKED IMPROVEMENT ON THE BI-PAP. IN CONVERSATION WITH DR. MOLINA PRIOR TO BI-PAP IMPLEMENTATION, BI-PAP TO BE USED PRN ONCE PT IMPROVES. PT IS IN NO DISTRESS AT THIS TIME WITH SATURATIONS OF 94% AND A RESPIRATORY RATE OF 20, ON A 4L NASAL CANNULA, WILL CONTINUE TO MONITOR, BI-PAP ON STAND-BY IN ROOM.
[2021-12-10 16:00] VITALS: BP_SYST 102; BP_SYST 130; BP_DIAS 66; BP_DIAS 79
--- NOTE | 2021-12-10 18:49 | NUR ---
PATIENT IS SITTING AT EDGE OF BED EATING DINNER, TOLERATING WELL. DENIES SOB. ON 2L NASAL CANNULA, SPO2 96%. NO COMPLAINTS AT THIS TIME. WILL ENDORSE TO NIGHT RN.
[2021-12-10 20:00] VITALS: BP 128/79
[2021-12-10] MEDS: methylPREDNISolone SS 40 MG/ML VIAL IVP SCH (21:00)
--- NOTE | 2021-12-10 23:49 | NUR ---
PATIENT ALERT HAS 02 ON 2 LITERS N/C ON MONITOR SINUS TEMP 97.5 LUNGS CLEAR NO C/O OF PAIN. SAT 92%. NO DISTRESS NOTED.
[2021-12-11] VITALS: BP 130/78
[2021-12-11 04:00] VITALS: BP 113/59
[2021-12-11 05:52] LABS: ANION GAP 2.8 (8-16); CARBON DIOXIDE 37.1 mmol/L (21-32); CREATININE 0.3 mg/dL (0.6-1.3); POTASSIUM 3.9 mmol/L (3.5-5.1)
[2021-12-11 06:23] LABS: BASOPHILS % (AUTO) 0.2 % (0.0-2.0); HEMATOCRIT 34.7 % (36-48); HEMOGLOBIN 11.1 g/dL (12.0-16.0); LYMPHOCYTES # (AUTO) 0.7 K/uL (2.5-16.5); LYMPHOCYTES % (AUTO) 10.5 % (20.5-51.1); MEAN CORPUSCULAR HEMOGLOBIN 29 pg (27-31); MEAN CORPUSCULAR HGB CONC 32 g/dL (33-37); MEAN CORPUSCULAR VOLUME 91.8 fL (80-94); MONOCYTES # (AUTO) 0.2 K/uL (0.8-1.0); NEUTROPHILS # (AUTO) 5.6 K/uL (1.8-7.7); NEUTROPHILS % (AUTO) 86.3 % (42.2-75.2); PLATELET COUNT (AUTO) 281 K/uL (140-450); RED BLOOD CELL COUNT(AUTO) 3.78 MIL/uL (4.20-5.40); RED CELL DISTRIBUTION WIDTH 14.5 % (11.6-13.7); WHITE BLOOD COUNT (AUTO) 6.5 K/uL (4.8-10.8)
[2021-12-11] MEDS: ALBUTEROL SULFATE/IPRATROPIU 3 ML SOL IH SCH ×3 (07:37→19:05)
[2021-12-11 08:00] VITALS: BP 102/66
--- NOTE | 2021-12-11 08:05 | NUR ---
RECEIVED PATIENT, AOX4, SINUS RHYTHM, RESPIRATIONS EVEN AND UNLABORED ON 2L NASAL CANNULA, SPO2 97%. ON ROOM AIR, PATIENT IS 88% WITH SHORTNESS OF BREATH AND EXPIRATORY WHEEZES. PATIENT DENIES PAIN. TOLERATING BREAKFAST WELL, NO NAUSEA/VOMITING. UPDATED PT ON PLAN OF CARE. WILL CONTINUE TO MONITOR.
[2021-12-11] MEDS: FUROSEMIDE 20 MG TAB PO SCH (08:45)
[2021-12-11] MEDS: PANTOPRAZOLE 40 MG TABEC PO SCH (08:45)
[2021-12-11] MEDS: methylPREDNISolone SS 40 MG/ML VIAL IVP SCH ×2 (08:46→21:00)
--- NOTE | 2021-12-11 09:36 | NUR ---
PATIENT HAS BEEN SCREENED AND CATEGORIZED MODERATE NUTRITION RISK. PATIENT WILL BE SEEN WITHIN 3-5 DAYS OF ADMISSION. / GIANCARLO SEGURA RD
[2021-12-11] MEDS: LEVOFLOXACIN 500 MG/D5W PREMIX 100 ML IV SCH (10:11)
--- NOTE | 2021-12-11 12:05 | NUR ---
PT IS SITTING AT [facility]OB EATING DINNER, HAS BEEN AMBULATING INDEPENDENTLY TO BATHROOM WITHOUT OXYGEN, RETURNS TO BED AND PUTS ON 2L, DENIES SOB. WILL CONT TO MONITOR.
[2021-12-11 16:00] VITALS: BP 125/55
--- NOTE | 2021-12-11 16:43 | NUR ---
DC PLANN[age] YRS OLD FEMALE PATIENT WAS ADMITTED FROM HOME WITH A DX OF ACUTE RESP FAILURE. PATIENT HAS A HX OF SCOLIOSIS, CHF, GERD AND ANEMIA. CXR SHOWED CARDIOMEGALY WITH MILD PULMONARY VASCULAR CONGESTION. CT CHEST NEGATIVE FOR PE. RAPID COVID TEST NEGATIVE. ON O2 2L/NC SATING 94%. ADMINISTERED IV ABX LEVAQUIN, SOLU-MEDROL AND IV LASIX. CONSULTED WITH PULKRAIG SHEPHERD. DC PLAN TO GO HOME WHEN STABLE. CM TO FOLLOW Addendum: 12/14/21 at 0901 by Taty Warren RN LATE ENTRY: 1500 PER AGRICULTURE ENGINEER O2 WALK STUDY ON ROOM AIR PT IS SATING 80%. FAXED THE HOME O2 ORDER TO [facility]. RECEIVED A CALL FROM [facility] STATED PATIENT HAS MEDICAL RESTRICTED, NOT QUALIFIED FOR HOME O2. CALLED SUN LEFT A MESSAGE. Addendum: 12/14/21 at 0906 by Taty Warren RN DC PLANNING: SPOKE WITH PATIENT'S SON DEAN STATED PATIENT WILL HAVE FULL MEDICAL ON December. I EXPLAINED THAT THE INSURANCE SHE HAS NOW IS NOT QUALIFIED AND [facility] IS ASKING A 3 MONTH PAYMENT A TOTAL OF $525, DEAN AGREED TO PAY ABBOTT AND WILL FOLLOW UP WITH THE INSURANCE. CALLED [facility] SPOKE WITH MELI STATED WILL CONTACT PT'S SON. CM TO FOLLOW Addendum: 12/14/21 at 1633 by Taty Warren RN DC PLANNING: SPOKE WITH PT'S SON DEAN STATED [employer] JUST CALLED HIM AND HE PAID FOR THE OXYGEN. AWAITING FOR THE ETA FOR OXYGEN DELIVERY AT BED SIDE. ONCE O2 ARRIVES PT CAN BE DISCHARGED. NOTIFIED ADDISON CHARGE NURSE.
--- NOTE | 2021-12-11 17:30 | NUR ---
PATIENT IS REQUESTING IV SITE CHANGE. IV PLACED TO LEFT HAND 22G. ON 2L RESTING IN BED COMFORTABLY. HAD BM TODAY. DENIES PAIN/SOB. WILL CONT TO MONITOR
--- NOTE | 2021-12-11 19:14 | NUR ---
SPOKE TO SON ON PHONE ABOUT WEARING BIPAP TONIGHT. PATIENT SAID SHE DOES NOT WANT TO WEAR IT. SON EXPLAINED TO HER IN [place] THAT IF SHE BECOMES SOB SHE NEEDS TO WEAR BIPAP MACHINE. PATIENT AGREED AND SAID SHE WOULD. HHNTX GIVEN TO PATIENT AND PATIENT IS WEARING 2LNC. SATS 97%. SATS ON ROOM AIR WAS 88%
--- NOTE | 2021-12-11 19:15 | NUR ---
RECEIVED BEDSIDE REPORT FOR PT CONTINUITY OF CARE.
--- NOTE | 2021-12-11 21:00 | NUR ---
PATIENT IS STABLE, AWAKE AND RESPONSIVE. SAFETY MEASURES IN PLACE, CALL LIGHT WITHIN THE REACH.
--- NOTE | 2021-12-11 22:15 | NUR ---
PT ASLEEP. NO SOB OR DISTRESS. SAFETY MEASURES IN PLACE, CALL LIGHT WITHIN THE REACH.
--- NOTE | 2021-12-12 00:20 | NUR ---
PT ASLEEP, NO SOB OR DISTRESS. SAFETY MEASURES IN PLACE. CALL LIGHT WITHIN THE REACH.
[2021-12-12] MEDS: ALBUTEROL SULFATE/IPRATROPIU 3 ML SOL IH SCH ×4 (00:54→19:47)
--- NOTE | 2021-12-12 01:13 | NUR ---
0100 PATIENT DID NOT WANT TO WEAR BIPAP AT THIS TIME. HHNTX GIVEN. EXTENDED O2 TUBING SO PATIENT COULD WEAR HER OXYGEN WHEN SHE GETS UP TO USE THE RESTROOM.
[2021-12-12 04:00] VITALS: BP 105/54
--- NOTE | 2021-12-12 04:00 | NUR ---
PT IS ON STABLE CONDITION. WITH O2 INHALATION. CONTINUE MONITORING.
[2021-12-12 05:42] LABS: BASOPHILS % (AUTO) 0.2 % (0.0-2.0); HEMATOCRIT 34.6 % (36-48); HEMOGLOBIN 11.1 g/dL (12.0-16.0); LYMPHOCYTES # (AUTO) 0.5 K/uL (2.5-16.5); LYMPHOCYTES % (AUTO) 8.4 % (20.5-51.1); MEAN CORPUSCULAR HEMOGLOBIN 29 pg (27-31); MEAN CORPUSCULAR HGB CONC 32 g/dL (33-37); MEAN CORPUSCULAR VOLUME 89.6 fL (80-94); MONOCYTES # (AUTO) 0.1 K/uL (0.8-1.0); MONOCYTES % (AUTO) 2.2 % (1.7-9.3); NEUTROPHILS # (AUTO) 5.2 K/uL (1.8-7.7); NEUTROPHILS % (AUTO) 89.2 % (42.2-75.2); PLATELET COUNT (AUTO) 286 K/uL (140-450); RED BLOOD CELL COUNT(AUTO) 3.86 MIL/uL (4.20-5.40); RED CELL DISTRIBUTION WIDTH 14.4 % (11.6-13.7); WHITE BLOOD COUNT (AUTO) 5.8 K/uL (4.8-10.8)
[2021-12-12 06:24] LABS: CARBON DIOXIDE 33.9 mmol/L (21-32); CREATININE 0.5 mg/dL (0.6-1.3); POTASSIUM 3.9 mmol/L (3.5-5.1)
--- NOTE | 2021-12-12 07:15 | NUR ---
ENDORSED TO DAY SHIFT NURSE FOR CONTINUITY OF CARE. PT IS ON STABLE CONDITION.
--- NOTE | 2021-12-12 07:19 | NUR ---
191 RECEIVED BEDSIDE REPORT FROM DAY SHIFT NURSE FOR CONTINUITY OF CARE.
--- NOTE | 2021-12-12 08:00 | NUR ---
RECEIVED PATIENT SITTING ON THE EDGE OF THE BED, AWAKE ALERT AND ORIENTED, PATIENT IS GUYANESE SPEAKING. LUNGS CLEAR PATIENT IN ON 2L NC. S1 AND S2 HEARD UPON AUSCULTATION. PATIENT BOWEL SOUNDS NORMAL ACTIVE, PATIENT DENIES PAIN. WILL CONTINUE TO MONITOR THROUGHOUT THE SHIFT. BED AT LOWEST POSITION AND LOCKED,CALL LIGHT AND PERSONAL BELONGINGS WITHIN REACH.
[2021-12-12] MEDS: methylPREDNISolone SS 40 MG/ML VIAL IVP SCH ×2 (10:06→22:24)
[2021-12-12] MEDS: LEVOFLOXACIN 500 MG/D5W PREMIX 100 ML IV SCH (10:06)
[2021-12-12] MEDS: PANTOPRAZOLE 40 MG TABEC PO SCH (10:07)
[2021-12-12] MEDS: FUROSEMIDE 20 MG TAB PO SCH (10:07)
--- NOTE | 2021-12-12 12:00 | NUR ---
PATIENT SITTING IN BED AWAKE ALERT AD ORIENTED, NO CHANGES AT THIS TIME.
--- NOTE | 2021-12-12 14:00 | NUR ---
DC PLANNING PATIENT IS A 66-YEAR-OLD FEMALE ADMITTED ON 12/10/2021 AT [facility]/ER DUE TO SHORTNESS OF BREATH FOR SEVERAL DAYS. PATIENT HAS HX. SCOLIOSIS, CHF, GERD AND ANEMIA. SW MET WITH PATIENT AT BEDSIDE TO DISCUSS AND GATHER PATIENT'S COLLATERAL INFORMATION. PATIENT WAS PLEASED TO SEE SW SINCE SHE HAS DONE HER ASSESSMENT IN PREVIOUS ADDITIONS AND REPORTED TO CONTINUE LIVING AT HOME WITH HER SON DEAN IN AN APARTMENT IN [facility]. PATIENT REPORTED THAT DEAN IS HER MEDICAL DECISION MAKER BUT HAS A GOOD SUPPORT FROM HER OTHER SON CIARRA ARREOLA THAT LIVES IN [place] WITH HIS FAMILY. PATIENT REPORTED THAT USUALLY SHE HAS BEEN ACTIVE AND INDEPENDENT AT HOME, BUT RECENTLY OVER THE LAST WEEK SHE HAS NOT BEEN FEELING WELL AND HAS SHORTNESS OF BREATH WITH ANY ACTIVITY. PATIENT REPORTED HAVING ADVANCE DIRECTIVES ALREADY IN PLACE AND WAS NOT INTERESTED ON GETTING INFORMATION PACKET PROVIDED BY SW AT THE TIME OF VISIT. PATIENT REPORTED HAVING A CANE, A WALKER AND A VEST FOR HER SPINE PAIN HER ONLY DME. PATIENT REPORTED NOT HAVING ANY ISSUES WITH GETTING OR TAKING ANY MEDICATIONS. SW EXPLAINED TO PATIENT THE NEED TO FOLLOW UP WITH AN APPOINTMENT WITHIN 5-7 DAYS WITH HER PCP AFTER DC, PATIENT AGREED FOR SW TO MAKE HER FOLLOW UP APPOINTMENT; WITH PRIMARY AT [facility] WITH HER DOCTOR AFTER SHE DISCHARGES FROM [facility]. PATIENT STATED THAT HER SON WILL BE ASSISTING HER WITH TRANSPORTATION BACK HOME WHEN SHE IS READY FOR DISCHARGE. SW WILL FOLLOW UP WITH PATIENT NEEDED.
--- NOTE | 2021-12-12 18:49 | NUR ---
CLOSING PATIENT AWAKE ALERT AND ORIENTED, NO CHANGES AT THIS TIME.
[2021-12-12 19:03] VITALS: BP 124/68
--- NOTE | 2021-12-12 19:35 | NUR ---
RECEIVED REPORT FROM MORNING SHIFT NURSE. PATIENT IS AWAKE IN BED RESTING. ROOM AIR. NO SOB NOTED. RESPIRATION EVEN UNLABORED. NO COMPLAINTS OF PAIN. SAFETY MEASURES IN PLACE. CALL LIGHT WITHIN REACH. ABLE TO AMBULATE TO THE RESTROOM.
--- NOTE | 2021-12-12 19:47 | NUR ---
PT SITTING IN BED AWAKE AND ALERT, BS CLEAR THROUGHOUT ALL LUNG SILVER, NO SIGNS OF RESPIRATORY DISTRESS NOTED AT THIS TIME. PT IS CURRENTLY SATING 96% ON 2LPM NC, STRONG NON PRODUCTIVE COUGH NOTED, BIPAP ON STAND BY, WILL CONTINUE TO MONITOR.
--- NOTE | 2021-12-12 22:24 | NUR ---
MEDICATIONS ADMINISTERED PER MD ORDERED.
[2021-12-13] VITALS: BP 124/71
[2021-12-13] MEDS: ALBUTEROL SULFATE/IPRATROPIU 3 ML SOL IH SCH ×2 (01:00→19:00)
--- NOTE | 2021-12-13 03:45 | NUR ---
PATIENT IS SLEEPING. OBSERVED CHEST RISE AND FALL SYMMETRICALLY. CALL LIGHT WITHIN REACH.
[2021-12-13 05:53] LABS: BASOPHILS % (AUTO) 0.2 % (0.0-2.0); HEMATOCRIT 34.9 % (36-48); HEMOGLOBIN 11.2 g/dL (12.0-16.0); LYMPHOCYTES # (AUTO) 0.6 K/uL (2.5-16.5); LYMPHOCYTES % (AUTO) 9.5 % (20.5-51.1); MEAN CORPUSCULAR HEMOGLOBIN 29 pg (27-31); MEAN CORPUSCULAR HGB CONC 32 g/dL (33-37); MEAN CORPUSCULAR VOLUME 90.2 fL (80-94); MONOCYTES # (AUTO) 0.2 K/uL (0.8-1.0); MONOCYTES % (AUTO) 2.9 % (1.7-9.3); NEUTROPHILS # (AUTO) 5.9 K/uL (1.8-7.7); NEUTROPHILS % (AUTO) 87.4 % (42.2-75.2); PLATELET COUNT (AUTO) 281 K/uL (140-450); RED BLOOD CELL COUNT(AUTO) 3.87 MIL/uL (4.20-5.40); RED CELL DISTRIBUTION WIDTH 14.5 % (11.6-13.7); WHITE BLOOD COUNT (AUTO) 6.8 K/uL (4.8-10.8)
--- NOTE | 2021-12-13 07:15 | NUR ---
ENDORSED PATIENT TO AM NURSE FOR CONTINUITY OF CARE IN STABLE CONDITION. NO SOB NOTED.
[2021-12-13 07:37] LABS: ANION GAP 8.1 (8-16); CARBON DIOXIDE 35.3 mmol/L (21-32); CREATININE 0.4 mg/dL (0.6-1.3); POTASSIUM 4.4 mmol/L (3.5-5.1)
[2021-12-13 08:00] VITALS: BP 124/71
--- NOTE | 2021-12-13 08:00 | NUR ---
OPENING RECEIVED PATIENT SITTING ON THE EDGE OF THE BED, AWAKE ALERT AND ORIENTED, PATIENT IS MALTESE SPEAKING. LUNGS CLEAR PATIENT IN ON 2L NC. S1 AND S2 HEARD UPON AUSCULTATION. PATIENT BOWEL SOUNDS NORMAL ACTIVE, PATIENT DENIES PAIN. WILL CONTINUE TO MONITOR THROUGHOUT THE SHIFT. BED AT LOWEST POSITION AND LOCKED,CALL LIGHT AND PERSONAL BELONGINGS WITHIN REACH.
--- NOTE | 2021-12-13 08:37 | NUR ---
PT WAS SLEEPING. NO DISTRESS NOTED.
[2021-12-13] MEDS ORDERED: LEVO-315 PO (10:22)
[2021-12-13] MEDS ORDERED: PRED5TAB7 PO (10:22)
[2021-12-13] MEDS ORDERED: ALBU-118 INH (10:22)
[2021-12-13] MEDS: methylPREDNISolone SS 40 MG/ML VIAL IVP SCH ×2 (10:54→21:09)
[2021-12-13] MEDS: LEVOFLOXACIN 500 MG/D5W PREMIX 100 ML IV SCH (10:54)
[2021-12-13] MEDS: FUROSEMIDE 20 MG TAB PO SCH (10:54)
[2021-12-13] MEDS: PANTOPRAZOLE 40 MG TABEC PO SCH (10:56)
--- NOTE | 2021-12-13 12:00 | NUR ---
PATIENT SCHEDULED FOR DC, PATIENT GOING HOME. PATIENT WITHOUT AT HOME OXYGEN WILL TITRATE TO SEE IF PATIENT CAN BE PLACED ON RA.
[2021-12-13 12:35] VITALS: BP 113/54
--- NOTE | 2021-12-13 15:36 | NUR ---
HAD PATIENT AMBULATE WITHOUT OXYGEN, AFTER AMBULATING PATIENT SATING AT 80% ON ROOM AIR. PATIENT SATING 97% ON 2L AT THE MOMENT. PHYSICAL THERAPY ASSISTANT GOING TO SPEAK WITH PATIENT SOME ABOUT HOME OXYGEN, PATIENT INSURANCE WILL NOT COVER.
--- NOTE | 2021-12-13 19:30 | NUR ---
RECEIVED BEDSIDE REPORT FROM DAY SHIFT RN FOR CONTINUITY OF CARE. PT IS AWAKE ON 2L NC. PT IS NOT IN ANY DISTRESS. HAS NO COMPLAINS. BREATHING EVEN AND UNLABORED. CALL LIGHT WITHIN REACH. ALL SAFETY MEASURES TAKEN. WILL CONTINUE TO MONITOR THE PT.
[2021-12-13 20:00] VITALS: BP 123/78
--- NOTE | 2021-12-13 21:10 | NUR ---
ALL DUE MEDS GIVEN. NO ADVERSE REACTION NOTED. WILL CONTINUE TO MONITOR THE PT.
[2021-12-14] MEDS: ALBUTEROL SULFATE/IPRATROPIU 3 ML SOL IH SCH ×2 (00:12→07:45)
--- NOTE | 2021-12-14 03:23 | NUR ---
PT IS SLEEPING COMFORTABLY IN BED. PT IS NOT IN ANY DISTRESS. BREATHING EVEN AND UNLABORED. CALL LIGHT WITHIN REACH. ALL SAFETY MEASURES TAKEN. WILL CONTINUE TO MONITOR THE PT.
[2021-12-14 05:22] LABS: BASOPHILS % (AUTO) 0.4 % (0.0-2.0); HEMATOCRIT 35.1 % (36-48); HEMOGLOBIN 11.3 g/dL (12.0-16.0); LYMPHOCYTES # (AUTO) 0.7 K/uL (2.5-16.5); LYMPHOCYTES % (AUTO) 11.9 % (20.5-51.1); MEAN CORPUSCULAR HEMOGLOBIN 29 pg (27-31); MEAN CORPUSCULAR HGB CONC 32 g/dL (33-37); MEAN CORPUSCULAR VOLUME 90.2 fL (80-94); MONOCYTES # (AUTO) 0.3 K/uL (0.8-1.0); MONOCYTES % (AUTO) 4.4 % (1.7-9.3); NEUTROPHILS # (AUTO) 4.9 K/uL (1.8-7.7); NEUTROPHILS % (AUTO) 83.3 % (42.2-75.2); PLATELET COUNT (AUTO) 287 K/uL (140-450); RED BLOOD CELL COUNT(AUTO) 3.89 MIL/uL (4.20-5.40); RED CELL DISTRIBUTION WIDTH 14.3 % (11.6-13.7); WHITE BLOOD COUNT (AUTO) 5.9 K/uL (4.8-10.8)
--- NOTE | 2021-12-14 05:32 | NUR ---
PT IS SLEEPING COMFORTABLY IN BED. PT IS NOT IN ANY ACUTE DISTRESS. BREATHING EVEN AND UNLABORED. CALL LIGHT WITHIN REACH. ALL SAFETY MEASURES TAKEN. WILL CONTINUE TO MONITOR THE PT.
[2021-12-14 05:45] LABS: ANION GAP 4.4 (8-16); CARBON DIOXIDE 37.4 mmol/L (21-32); CREATININE 0.4 mg/dL (0.6-1.3); POTASSIUM 3.8 mmol/L (3.5-5.1)
--- NOTE | 2021-12-14 07:16 | NUR ---
ENDORSED PT TO DAY SHIFT RN FOR CONTINUITY OF CARE. PT IS STABLE.
--- NOTE | 2021-12-14 07:45 | NUR ---
ASSESSED PT. BREATHING TREATMENT NOT INDICATED AT THIS TIME. NO SHORTNESS OF BREATH AND CLEAR BILATERALLY.
[2021-12-14 08:00] VITALS: BP 125/69
--- NOTE | 2021-12-14 08:01 | NUR ---
RECEIVED PATIENT, AOX4, SAMI SPEAKING, RESPIRATIONS EVEN AND UNLABORED ON 2L NASAL CANNULA SPO2 95%. ON ROOM AIR 90%. TOLERATED BREAKFAST WELL WITH NO NAUSEA/VOMITING. AMBULATING INDEPENDENTLY IN ROOM WITH CANE. DENIES SOB/CHEST PAIN. NO ACUTE DISTRESS AT THIS TIME. UPDATED PATIENT ON PLAN OF CARE. WILL CONTINUE TO MONITOR.
[2021-12-14] MEDS: PANTOPRAZOLE 40 MG TABEC PO SCH (08:51)
[2021-12-14] MEDS: FUROSEMIDE 20 MG TAB PO SCH (08:51)
[2021-12-14] MEDS: methylPREDNISolone SS 40 MG/ML VIAL IVP SCH (08:51)
[2021-12-14] MEDS: LEVOFLOXACIN 500 MG/D5W PREMIX 100 ML IV SCH (08:53)
--- NOTE | 2021-12-14 10:59 | NUR ---
ASSESSED PT. SATURATION IS 96% ON 2L NASAL CANNULA. NO SOB NOTED. CLEAR ON AUSCULTATION. REFUSED TREATMENT AT THIS TIME.
--- NOTE | 2021-12-14 11:02 | NUR ---
PATIENT IS SITTING AT EDGE OF BED, NO ACUTE DISTRESS NOTED, ON 2L NASAL CANNULA NO SOB NOTED.
--- NOTE | 2021-12-14 13:03 | NUR ---
12/14/21 RD INITIAL ASSESSMENT COMPLETED PLEASE REFER TO NUTRITION ASSESSMENT UNDER CARE ACTIVITY FOR ESTIMATED NUTRITIONAL NEEDS. 1. CONTINUE REGULAR DIET TOLERATED 2. MONITOR NUTRITION-RELATED LAB VALUES 3. RD TO FOLLOW-UP 7 DAYS, LOW RISK GIANCARLO SEGURA RD
[2021-12-14 16:00] VITALS: BP 129/79
[2021-12-14] MEDS ORDERED: ALBUTEROL SULFATE/IPRATROPIU 3 ML SOL IH SCH (16:50)
--- NOTE | 2021-12-14 18:50 | NUR ---
PATIENT IS STILL WAITING FOR O2 TO BE DELIVERED. ON 2L BREATHING COMFORTABLY. WILL ENDORSE TO NIGHT RN.
--- NOTE | 2021-12-14 19:26 | NUR ---
02 DELIVERED FOR HOME USE. DISCHARGE INSTRUCTIONS EXPLAINED AT BEDSIDE; PT VERBALIZED UNDERSTANDING. PT EDUCATED REGARDING MEDICATION, SON AND OPT VERBALIZED UNDERSTANDING. ARM BAND OFF AND IV SITE ON LEFT HAND 22 GUAGE D/CD WITH CANNULA INTACT. PT LEFT WITH DISCHARGE INSTRUCTIONS, AND BELONGS IN HAND VIA W/C.
== END 2021-12-14 20:00 | disposition home or self-care (01) | DRG 140 ==
LOC: MED 03:18 → MMU 09:03
PROVIDERS: ADMIT General Practice; ATTEND General Practice
DX: J44.1 Chronic obstructive pulmonary disease with (acute) exacerbation (principal); J96.21 Acute and chronic respiratory failure with hypoxia; E44.0 Moderate protein-calorie malnutrition; D63.1 Anemia in chronic kidney disease; J96.22 Acute and chronic respiratory failure with hypercapnia; D64.9 Anemia, unspecified; M41.9 Scoliosis, unspecified; Z20.822 Contact with and (suspected) exposure to COVID-19; I77.819 Aortic ectasia, unspecified site; K44.9 Diaphragmatic hernia without obstruction or gangrene; K21.9 Gastro-esophageal reflux disease without esophagitis; Z79.899 Other long term (current) drug therapy; Z79.1 Long term (current) use of non-steroidal anti-inflammatories (NSAID); Z68.35 Body mass index [BMI] 35.0-35.9, adult
CPT/HCPCS: 0001A; 96365; 99285; 36415; 36600; 71045; 71275; 80048; 80053; 82803; 83735; 83880; 84484; 85025; 85379; 87081; 93005; 94640; 94660; J0696; J1644; J1956; J2920; J2930; J7512; J7613; J7644; Q0092; Q9967